=== PATIENT | male | born 1945 | race Caucasian/White ===

== ENCOUNTER 2017-12-28 14:15 | Inpatient (IN) | payer MEDICARE, OTHER ==
[~2017-12-28] VITALS: Ht 180.3 cm; Wt 64.4 kg
--- NOTE | 2017-12-28 14:20 | NUR ---
PT ARRIVED FROM [facility] VIA AMBULANCE. ALTERED AND UNCOOPERATIVE. ORIENTED TO HIS NAME.
[2017-12-28] MEDS ORDERED: RIVA10TA PO (14:41)
[2017-12-28] MEDS ORDERED: CARV25TA PO (14:41)
[2017-12-28] MEDS ORDERED: IPRA12.9 IH (14:41)
[2017-12-28] MEDS ORDERED: MAG355OR18 PO (14:41)
[2017-12-28] MEDS ORDERED: ONDA4VIA30 IV (14:41)
[2017-12-28] MEDS ORDERED: POLY17PO4 PO (14:41)
[2017-12-28] MEDS ORDERED: DIGO250T PO (14:41)
[2017-12-28] MEDS ORDERED: ASPI-605 PO (14:41)
[2017-12-28] MEDS ORDERED: ZOLP5TAB2 PO (14:41)
[2017-12-28] MEDS ORDERED: ATOR40TA PO (14:41)
[2017-12-28] MEDS ORDERED: ALBU2.5V13 IH (14:41)
[2017-12-28] MEDS ORDERED: ACET325T53 PO (14:41)
[2017-12-28] MEDS ORDERED: DILT30TA33 PO (14:41)
[2017-12-28] MEDS ORDERED: FURO-151 PO (14:41)
[2017-12-28] MEDS ORDERED: LORA-259 PO (14:41)
[2017-12-28] MEDS ORDERED: MAGN400O6 PO (14:41)
[2017-12-28] MEDS ORDERED: BLOO-140 IN (14:41)
[2017-12-28] MEDS ORDERED: LISI10TA5 PO (14:41)
[2017-12-28] MEDS ORDERED: DIVA250T4 PO (14:43)
[2017-12-28] MEDS ORDERED: QUET50TA PO (14:43)
--- NOTE | 2017-12-28 14:47 | NUR ---
SEEN AND EXAMINED BY MD. FOR PSYCHE EVALUATION AND MEDICAL CLEARANCE. PT GOT COMBATIVE AT THE FACILITY. PROVIDED SECURITY
[2017-12-28 14:57] LABS: BASOPHILS % (AUTO) 0.6 % (0.0-2.0); EOSINOPHILS % (AUTO) 0.9 % (0.0-7.0); HEMATOCRIT 35.9 % (36.7-47.1); HEMOGLOBIN 11.6 g/dL (12.5-16.3); LYMPHOCYTES # (AUTO) 0.9 K/uL (20.0-40.0); MEAN CORPUSCULAR HEMOGLOBIN 31.5 uug (23.8-33.4); MEAN CORPUSCULAR HGB CONC 32 g/dL (32.5-36.3); MEAN CORPUSCULAR VOLUME 97.3 fL (73.0-96.2); MONOCYTES # (AUTO) 0.5 K/uL (2.0-10.0); MONOCYTES % (AUTO) 10.4 % (0.0-11.0); NEUTROPHILS # (AUTO) 3.4 K/uL (1.8-8.9); NEUTROPHILS % (AUTO) 69.1 % (38.5-71.5); PLATELET COUNT (AUTO) 132 K/uL (152-348); RED BLOOD CELL COUNT(AUTO) 3.69 MIL/uL (4.06-5.63)
[2017-12-28 15:05] LABS: CARBON DIOXIDE 30 mmol/L (21-32); CHLORIDE 107 mmol/L (98-107); CREATININE 1.3 mg/dL (0.6-1.3); GLUCOSE 103 mg/dL (74-106); POTASSIUM 4.5 mmol/L (3.5-5.1); UREA NITROGEN, BLOOD 21 mg/dL (7-18)
[2017-12-28 15:13] LABS: ETHANOL 4 MG/DL (0-0)
[2017-12-28 15:17] LABS: ACETAMINOPHEN 9.7 ug/mL (10-30); ALANINE AMINOTRANSFERASE 15 U/L (16-63); ALKALINE PHOSPHATASE 52 U/L (50-136); ASPARTATE AMINOTRANSFERASE 15 U/L (15-37); BILIRUBIN,DIRECT 0.2 mg/dL (0.0-0.2); BILIRUBIN,TOTAL 0.8 mg/dL (0.2-1.0); TOTAL PROTEIN, SERUM 6.4 g/dL (6.4-8.2)
[2017-12-28] MEDS ORDERED: MIDAZOLAM HCL 2 MG/2 ML VIAL IM ONE (15:30)
[2017-12-28] MEDS ORDERED: OLANZAPINE 10 MG VIAL IM ONE ×2 (15:30→15:48)
--- NOTE | 2017-12-28 15:30 | NUR ---
PT BECAME AGITATED AND UNCONTROLLED. CONNIE MELENDEZ CALLED AND PT PLACED BACK TO BED.
--- NOTE | 2017-12-28 15:33 | NUR ---
ZYPREXA 10MG IM GIVEN TO RIIGHT BUTTOCK FOR SEVERE AGITATION.
--- NOTE | 2017-12-28 15:38 | NUR ---
ADDITIONAL MEDICATION GIVEN MIDAZOLAM 5MG IM ON THE LEFT BUTTOCK ORDERED FOR SEVERE AGITATION.
[2017-12-28] MEDS ORDERED: MIDAZOLAM HCL 5 MG/ML VIAL ONE (15:53)
[2017-12-28] MEDS ORDERED: HALOPERIDOL LACTATE 5 MG/1 ML VIAL IM ONE (16:45)
--- NOTE | 2017-12-28 16:45 | NUR ---
PT STILL VERY RESTLESS AND TRYING TO GET OUT OF BED. MEDICATED WITH HALDOL 5MG IM RIGHT BUTTOCK ORDERED.
[2017-12-28] MEDS ORDERED: HALOPERIDOL LACTATE 5 MG/1 ML VIAL ONE (16:56)
--- NOTE | 2017-12-28 19:18 | NUR ---
PT CONTINUED TO BE RESTLESS. SECURITY AT BEDSIDE FOR SAFETY. AWAITING FOR PSYCHE EVAL. REPORT GIVEN TO WENDY CRISTOBAL
--- NOTE | 2017-12-28 20:20 | NUR ---
Called report to Facundo.
[2017-12-28] MEDS ORDERED: LORAZEPAM 0.5 MG TABLET PO PRN (20:30)
[2017-12-28] MEDS ORDERED: MAGNESIUM HYDROXIDE 30 ML LIQUID UDC PO PRN (20:30)
[2017-12-28] MEDS ORDERED: MAG HYDROX/AL HYDROX/SIMETH 30 ML LIQUID UDC PO PRN (20:30)
[2017-12-28] MEDS ORDERED: LORAZEPAM 1 MG TABLET PO PRN (20:30)
[2017-12-28] MEDS ORDERED: ZOLPIDEM 5 MG TABLET PO PRN (21:15)
[2017-12-28 21:30] VITALS: BP 138/78
[2017-12-28] MEDS ORDERED: LORAZEPAM 1 MG TABLET ONE (22:17)
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
--- NOTE | 2017-12-28 22:35 | NUR ---
REMAINS RESTLESS, ATTEMPTING TO CLIMB OUT OF CHAIR. PRN ATIVAN WAS GIVEN, AT THIS TIME.
[2017-12-29] MEDS ORDERED: ONDANSETRON 4 MG/2 ML VIAL IV PRN (00:30)
[2017-12-29] MEDS ORDERED: MIRALAX 17 GM POWD.PACK PO PRN (00:30)
[2017-12-29] MEDS ORDERED: ALBUTEROL SULFATE 2.5 MG/ 0.5 ML NEBU IH PRN (00:30)
[2017-12-29] MEDS ORDERED: IPRATROPIUM BROMIDE 0.5 MG/2.5 ML NEBU NEB PRN (00:45)
[2017-12-29] MEDS: DILTIAZEM HCL 90 MG TABLET PO SCH ×3 (06:32→21:04)
[2017-12-29] MEDS ORDERED: DILTIAZEM HCL 90 MG TABLET ONE (06:45)
[2017-12-29 07:58] VITALS: BP 133/85
[2017-12-29] MEDS ORDERED: DIVALPROEX 250 MG TABLET.DR PO SCH (09:00)
[2017-12-29] MEDS: ASPIRIN EC 81 MG TABLET.DR PO SCH (09:01)
[2017-12-29] MEDS: FUROSEMIDE 40 MG TABLET PO SCH (09:03)
[2017-12-29] MEDS: LISINOPRIL 10 MG TABLET PO SCH (09:03)
[2017-12-29] MEDS: CARVEDILOL 25 MG TABLET PO SCH ×2 (09:03→21:00)
[2017-12-29] MEDS ORDERED: OLANZAPINE 10 MG VIAL IM ONE (12:15)
[2017-12-29] MEDS ORDERED: LORAZEPAM 2 MG/1 ML VIAL IM ONE (12:15)
--- NOTE | 2017-12-29 12:15 | NUR ---
Gps/Drum Plater- Patient extremely agitated, kept getting up from his chair, refusing to follow directions, nor redirectable, strong and resistive to his care. Poor safety judgement, confused ,disoriented, potential for fall. Remains with a 1:1 Nursing supervision, unable to stay still. wanders around to other patient room.Continue to monitor closely for safety. Dr Marcelino here observed patient behavior, orders received.Ativan 1 mg im zyprexa 5 mg im , adminstered to his right deltoid area, Needed 4 staff to assist in administering medications. Patient observed sitting on the floor.
[2017-12-29] MEDS: DIGOXIN 250 MCG TABLET PO SCH (12:45)
--- NOTE | 2017-12-29 15:34 | NUR ---
Gps/Switchboard Operator Supervisor- Remains sitting up on his guanako-chair, figity, restless, confused,disoriented, continue to monitor safety, wiggles out of his guanako-chair.Remains on 1:1 Nursing supervision for safety.
[2017-12-29] MEDS: LORAZEPAM 0.5 MG TABLET PO PRN (16:12)
[2017-12-29] MEDS: RIVAROXABAN 10 MG TABLET PO SCH (17:37)
[2017-12-29] MEDS: DIVALPROEX SPRINKLE 125 MG CAP.SPRINK PO SCH (17:41)
[2017-12-29 19:57] VITALS: BP 98/63
[2017-12-29] MEDS ORDERED: QUETIAPINE FUMARATE 75 MG PO SCH (21:00)
[2017-12-29] MEDS: ATORVASTATIN 40 MG TABLET PO SCH (21:03)
[2017-12-29] MEDS: QUETIAPINE FUMARATE 25 MG TABLET PO SCH (21:03)
[2017-12-30] MEDS: LORAZEPAM 0.5 MG TABLET PO PRN ×3 (03:00→21:55)
--- NOTE | 2017-12-30 05:22 | NUR ---
Pharmacy Note: gave medication with witness 1:1 sitter at 03:00 am but forgot to save it.
--- NOTE | 2017-12-30 05:38 | NUR ---
Patient slept 3.5 hours this shift. No acute distress noted. 1:1 Sitter at bedside. Patient was restless. Tries to get out of the bed or guanako chair. However, patient remains Med compliant. Safety and comfort measures maintained t/o shift. Room was kept clutter free. Bed in low and locked position. Vital signs stable. ALL BP meds help because BP ran on the low side. Discussed with Charge Nurse. All meds given as ordered. All needs met.
[2017-12-30] MEDS: DILTIAZEM HCL 90 MG TABLET PO SCH ×3 (06:00→21:45)
[2017-12-30 07:30] VITALS: BP 96/52
[2017-12-30] MEDS: FUROSEMIDE 40 MG TABLET PO SCH (09:00)
[2017-12-30] MEDS: DIVALPROEX SPRINKLE 125 MG CAP.SPRINK PO SCH ×3 (09:00→17:00)
[2017-12-30] MEDS: CARVEDILOL 25 MG TABLET PO SCH ×2 (09:00→20:33)
[2017-12-30] MEDS: DIGOXIN 250 MCG TABLET PO SCH (09:00)
[2017-12-30] MEDS: LISINOPRIL 10 MG TABLET PO SCH (09:00)
[2017-12-30] MEDS: ASPIRIN EC 81 MG TABLET.DR PO SCH (09:00)
--- NOTE | 2017-12-30 10:40 | NUR ---
Gps/Pug Mill Operator- Remains on 1:1 Nursing supervision for safety, asleep, unable to administer routine am meds.will reoffer at a later time, will recheck vital signs.
[2017-12-30] MEDS ORDERED: OLANZAPINE 10 MG VIAL IM ONE (16:15)
[2017-12-30] MEDS ORDERED: LORAZEPAM 2 MG/1 ML VIAL IM ONE (16:15)
--- NOTE | 2017-12-30 16:15 | NUR ---
Gps/Six Sigma Project Manager- Dr Morelos was called by Nurse in Charge , informed of patient combative behavior, extremely agitated, crawling on the from, wanders room to room, orders received.Ativan 1 mg IM and Zyprexa 5 mg IM was ordered and was administered to right deltoid as ordered.
[2017-12-30] MEDS: RIVAROXABAN 10 MG TABLET PO SCH (17:03)
--- NOTE | 2017-12-30 17:30 | NUR ---
Gps/Security Researcher- Renetta Weiss SPOT CHECKER in to see patient, reviewed medications, informed of the low blood pressures , latest 96/63 HR 90 , parameters were made on all b/p medications.Remains on 1:1 Nursing supervision for safety.
[2017-12-30 19:42] VITALS: BP 92/60
[2017-12-30] MEDS: ATORVASTATIN 40 MG TABLET PO SCH (20:34)
[2017-12-30] MEDS: QUETIAPINE FUMARATE 25 MG TABLET PO SCH (20:34)
[2017-12-31] MEDS: DILTIAZEM HCL 90 MG TABLET PO SCH ×3 (06:00→21:40)
[2017-12-31 06:20] VITALS: BP 108/57
[2017-12-31 07:09] LABS: CARBON DIOXIDE 32 mmol/L (21-32); CHLORIDE 108 mmol/L (98-107); CREATININE 0.8 mg/dL (0.6-1.3); GLUCOSE 86 mg/dL (74-106); UREA NITROGEN, BLOOD 17 mg/dL (7-18)
[2017-12-31 07:30] VITALS: BP 121/68
[2017-12-31] MEDS: ASPIRIN EC 81 MG TABLET.DR PO SCH (08:07)
[2017-12-31] MEDS: FUROSEMIDE 40 MG TABLET PO SCH (08:07)
[2017-12-31] MEDS: DIVALPROEX SPRINKLE 125 MG CAP.SPRINK PO SCH ×3 (08:07→16:46)
[2017-12-31] MEDS: DIGOXIN 250 MCG TABLET PO SCH (08:08)
[2017-12-31] MEDS: CARVEDILOL 25 MG TABLET PO SCH ×2 (08:08→20:34)
[2017-12-31] MEDS: LISINOPRIL 10 MG TABLET PO SCH (08:08)
[2017-12-31] MEDS ORDERED: ONDANSETRON 4 MG/2 ML VIAL IV PRN (12:00)
[2017-12-31] MEDS: LORAZEPAM 0.5 MG TABLET PO PRN ×2 (12:02→21:05)
[2017-12-31] MEDS ORDERED: ONDANSETRON ODT 4 MG TAB.RAPDIS SL PRN (12:15)
--- NOTE | 2017-12-31 13:36 | NUR ---
Firearms Report: Office Machine Servicer Apprentice completed and submitted [employer] Firearms Report on 12/31/17.
--- NOTE | 2017-12-31 15:36 | NUR ---
Initial Discharge Instructions: Pt currently lives at [facility] [[address] [place] [address]; [phone]]. Left a message for patient's Public Guardian, Reny Wallace ([phone]). Spoke with patient's daughter, Ina Esposito ([phone]) who is uncertain if plan for pt to return to [place] is appropriate for the patient. SW will speak with pt, family, Public Guardian, and MD regarding appropriate discharge plans for the pt. SW will form a safe and proper discharge plan.
--- NOTE | 2017-12-31 16:14 | NUR ---
Initial Discharge Instructions: Spoke with patient's Public Guardian, (Reny Wallace [phone]) who states she would like pt to return to [facility] when ready for discharge. SW will continue to collaborate with PG, pt, and MD regarding safe discharge plans.
[2017-12-31] MEDS: RIVAROXABAN 10 MG TABLET PO SCH (16:50)
[2017-12-31 20:25] VITALS: BP 120/72
[2017-12-31] MEDS: QUETIAPINE FUMARATE 100 MG TABLET PO SCH (20:34)
[2017-12-31] MEDS: ATORVASTATIN 40 MG TABLET PO SCH (20:34)
[2017-12-31] MEDS ORDERED: QUETIAPINE FUMARATE 25 MG TABLET PO SCH (21:00)
[2018-01-01] MEDS: DILTIAZEM HCL 90 MG TABLET PO SCH ×3 (06:00→21:50)
[2018-01-01] MEDS ORDERED: Z GUARD REMEDY PASTE 57 GM TUBE TOP PRN (07:00)
[2018-01-01 07:30] VITALS: BP 108/60
[2018-01-01] MEDS: CARVEDILOL 25 MG TABLET PO SCH ×2 (09:00→21:00)
[2018-01-01] MEDS: LISINOPRIL 10 MG TABLET PO SCH (09:00)
[2018-01-01] MEDS: DIGOXIN 250 MCG TABLET PO SCH (09:00)
[2018-01-01] MEDS: FUROSEMIDE 40 MG TABLET PO SCH (10:11)
[2018-01-01] MEDS: DIVALPROEX SPRINKLE 125 MG CAP.SPRINK PO SCH ×4 (10:12→21:22)
[2018-01-01] MEDS: Z GUARD REMEDY PASTE 57 GM TUBE TOP SCH ×2 (10:13→21:23)
[2018-01-01] MEDS: ASPIRIN EC 81 MG TABLET.DR PO SCH (10:13)
--- NOTE | 2018-01-01 10:48 | NUR ---
WOUND CARE CONSULT: PT PRESENTS WITH INCONTINENCE. RECOMMENDATIONS MADE FOR SKIN PROTECTION AND DISCUSSED WITH NURSING STAFF. CURRENT ANAYELI SCORE IS 17. PT IS AMBULATORY WITH P.T. BUT VERY UNSTEADY. WILL SEE PRTorsten IBRAHIM IN AGREEMENT WITH PLAN OF CARE.
[2018-01-01] MEDS ORDERED: OLANZAPINE 10 MG VIAL IM ONE (11:30)
[2018-01-01] MEDS ORDERED: LORAZEPAM 2 MG/1 ML VIAL IM ONE (11:30)
[2018-01-01 17:00] VITALS: BP 103/50
[2018-01-01] MEDS: RIVAROXABAN 10 MG TABLET PO SCH ×2 (17:00→19:00)
[2018-01-01 20:00] VITALS: BP 93/63
[2018-01-01] MEDS: QUETIAPINE FUMARATE 100 MG TABLET PO SCH (21:00)
[2018-01-01] MEDS: ATORVASTATIN 40 MG TABLET PO SCH (21:22)
--- NOTE | 2018-01-01 23:00 | NUR ---
received to care, up in guanako chair, appearing agitated and restless, 1;1 sitter, at side. bedtime dose of seroquel was held due to b/p of 93/63. po fluids wer egiven, but his b/p was only 102/59, at 2100. as of 2299, his b/p is now 101/59. will continue to monitor closely.
--- NOTE | 2018-01-02 00:15 | NUR ---
b/p is now 101/58. staff attempted to place him in bed, and change his diaper. diaper change was done with much resistance, taking 3 staff to assist. he immediately tried to get up, and tried to strike staff, when redirected, so he was placed back in the guanako chair.
[2018-01-02] MEDS: ACETAMINOPHEN 325 MG TABLET PO PRN ×2 (00:47→10:46)
[2018-01-02] MEDS: DILTIAZEM HCL 90 MG TABLET PO SCH ×3 (05:51→21:27)
--- NOTE | 2018-01-02 06:00 | NUR ---
slept 1.5 hours, last night. assited with am care, and shower. currently dozing off, in the guanako chair. sitter remains at side. no distress noted.
[2018-01-02 08:00] VITALS: BP 109/65
[2018-01-02] MEDS: CARVEDILOL 25 MG TABLET PO SCH ×2 (09:00→20:40)
[2018-01-02] MEDS: LISINOPRIL 10 MG TABLET PO SCH (09:00)
[2018-01-02] MEDS: DIVALPROEX SPRINKLE 125 MG CAP.SPRINK PO SCH ×4 (09:03→20:02)
[2018-01-02] MEDS: FUROSEMIDE 40 MG TABLET PO SCH (09:03)
[2018-01-02] MEDS: DIGOXIN 250 MCG TABLET PO SCH (09:04)
[2018-01-02] MEDS: ASPIRIN EC 81 MG TABLET.DR PO SCH (09:04)
[2018-01-02] MEDS: Z GUARD REMEDY PASTE 57 GM TUBE TOP SCH ×2 (09:07→20:03)
--- NOTE | 2018-01-02 09:16 | NUR ---
coreg and lisinopril held [id number]. parameters hold med if SBP< 110.
[2018-01-02] MEDS: LORAZEPAM 0.5 MG TABLET PO PRN (10:47)
--- NOTE | 2018-01-02 13:15 | NUR ---
APOORVA HELD BP 89/45. CONTINUE TO MONITOR PT.
[2018-01-02 16:00] VITALS: BP 101/59
[2018-01-02] MEDS: RIVAROXABAN 10 MG TABLET PO SCH (16:50)
--- NOTE | 2018-01-02 18:15 | NUR ---
PT IS WITH 1:1 SITTER. SITTER IS INTERACTING WITH PT AND STIMULATING HIM. PT SHOWS NO SIGNS OF RESPIRATORY DISTRESS, HAS CALM AFFECT. PT IS AOX1 AND NEEDS REDIRECTING.BED AT LOWEST LOCKED POSITION. CONTINUE TO MONITOR PT.
[2018-01-02] MEDS: ATORVASTATIN 40 MG TABLET PO SCH (20:03)
[2018-01-02 20:49] VITALS: BP 98/65
[2018-01-02 21:00] VITALS: BP 102/66
[2018-01-02] MEDS: QUETIAPINE FUMARATE 100 MG TABLET PO SCH (21:00)
--- NOTE | 2018-01-02 22:00 | NUR ---
received to care, up in guanako chair, very restless and agitated, 1:1 sitter at his side, for safety. b/p was initially 98/65, so po fluids were given. he became increasingly agitated, so he was assisted out of the guanako chair and ambulated in the hallway. diaper was also changed. he became very combative, gait was unsteady, so he was assisted back into the guanako chair, for safety. b/p was 102 66, so depakote was given, but seroquel was held. will continue to monitor closely.
[2018-01-02 23:00] VITALS: BP 98/64
--- NOTE | 2018-01-02 23:00 | NUR ---
remains up in guanako chair. is still agitated, but behavior is manageable. b/p is now 98/64. will continue to monitor closely.
[2018-01-03 02:49] VITALS: BP 112/64
[2018-01-03] MEDS: LORAZEPAM 0.5 MG TABLET PO PRN ×2 (02:49→15:23)
--- NOTE | 2018-01-03 02:49 | NUR ---
remains restless, and agitated. b/p is now 112/64, hr 74, so PRN ativan was given. sitter remains at side. will continue to monitor closely.
--- NOTE | 2018-01-03 03:30 | NUR ---
appears calmer, now.
[2018-01-03] MEDS: DILTIAZEM HCL 90 MG TABLET PO SCH ×3 (05:52→21:09)
--- NOTE | 2018-01-03 06:00 | NUR ---
slept 1 hour total. remains calm. assisted with am care, and shower. currently up in guanako chair. appears to be asleep. no distress noted. sitter remains at side. will continue to monitor closely.
[2018-01-03 07:30] VITALS: BP 106/76
[2018-01-03] MEDS: DIVALPROEX SPRINKLE 125 MG CAP.SPRINK PO SCH ×4 (08:45→21:00)
[2018-01-03] MEDS: LISINOPRIL 10 MG TABLET PO SCH (08:46)
[2018-01-03] MEDS: FUROSEMIDE 40 MG TABLET PO SCH (08:46)
[2018-01-03] MEDS: ASPIRIN EC 81 MG TABLET.DR PO SCH (08:46)
[2018-01-03] MEDS: CARVEDILOL 25 MG TABLET PO SCH ×2 (08:46→21:00)
[2018-01-03] MEDS: DIGOXIN 250 MCG TABLET PO SCH (08:46)
[2018-01-03] MEDS: Z GUARD REMEDY PASTE 57 GM TUBE TOP SCH ×2 (09:52→21:09)
[2018-01-03 13:29] VITALS: BP 80/65
--- NOTE | 2018-01-03 15:00 | NUR ---
Gps/Band Nailer-Patients' daughter called was able to talked to the patient. Speech incoherent , got anxious, climbing out of his guanako-chair, unable to redirect pt. not following directions. Fluids offered, continue with 1:1 Nursing supervision for safety. Patches of old scratches/ scabs on his forearms noted, r/t to patient episodes of agitations. Continue to provide a safe environment for pt.
[2018-01-03 18:00] VITALS: BP 113/59
[2018-01-03] MEDS: RIVAROXABAN 10 MG TABLET PO SCH (18:12)
[2018-01-03] MEDS ORDERED: QUETIAPINE FUMARATE 100 MG TABLET PO SCH (21:00)
[2018-01-03] MEDS: QUETIAPINE FUMARATE 25 MG TABLET PO SCH (21:00)
[2018-01-03 21:11] VITALS: BP 104/54
[2018-01-03] MEDS: ATORVASTATIN 40 MG TABLET PO SCH (21:45)
--- NOTE | 2018-01-03 22:00 | NUR ---
received to care, up ingeri chair, 1:1 sitter at side for safety, appearing slightly restless, but easy to redirect. b/p 97/60, hr 73, so his psychotropic and cardiac meds were held. as of 2199, he remains up in guanako chair. appears to be sleeping intermittently. he was assisted to the bathroom, then bed earlier, but he immediately climbed out of bed, so he was placed back in the guanako chair, for safety. will continue to monitor closely. no distress noted.
[2018-01-04 03:47] VITALS: BP 95/45
--- NOTE | 2018-01-04 03:48 | NUR ---
remains awake, and restless, but behavior is manageable. b/p is 95/45. hr 74.
[2018-01-04] MEDS: DILTIAZEM HCL 90 MG TABLET PO SCH ×3 (05:26→22:00)
--- NOTE | 2018-01-04 06:00 | NUR ---
slept 1 hour, total. remains calm. sitter remains at side.
[2018-01-04] MEDS: LISINOPRIL 10 MG TABLET PO SCH (08:56)
[2018-01-04] MEDS: Z GUARD REMEDY PASTE 57 GM TUBE TOP SCH ×2 (08:57→20:30)
[2018-01-04] MEDS: ASPIRIN EC 81 MG TABLET.DR PO SCH (08:58)
[2018-01-04] MEDS: DIGOXIN 250 MCG TABLET PO SCH (08:58)
[2018-01-04] MEDS: CARVEDILOL 25 MG TABLET PO SCH ×2 (08:58→20:30)
[2018-01-04] MEDS: FUROSEMIDE 40 MG TABLET PO SCH (08:59)
[2018-01-04] MEDS: DIVALPROEX SPRINKLE 125 MG CAP.SPRINK PO SCH ×5 (08:59→20:30)
[2018-01-04] MEDS: ACETAMINOPHEN 325 MG TABLET PO PRN (14:43)
[2018-01-04] MEDS: LORAZEPAM 0.5 MG TABLET PO PRN (14:44)
[2018-01-04] MEDS: RIVAROXABAN 10 MG TABLET PO SCH (17:10)
[2018-01-04 18:17] VITALS: BP 107/54
--- NOTE | 2018-01-04 18:29 | NUR ---
Gps/Chip Silo Tender- Remains on 1:1 Nursing supervision for safety. Confused, disoriented, poor safety judgement, unsteady gait, kept clumbing out of his guanako-chair, 3-4 staff to assist patient in his hygiene, incontienent of bowel and bladder, toileted w/ poor results,.Continue to monitor patient closely for safety.
[2018-01-04] MEDS: ATORVASTATIN 40 MG TABLET PO SCH (20:29)
[2018-01-04] MEDS: QUETIAPINE FUMARATE 25 MG TABLET PO SCH (20:30)
--- NOTE | 2018-01-04 20:36 | NUR ---
HELP Coreg BP meds, BP was low 111/63 HR 66. Discussed with Charge Nurse P. Will continue to monitor.
[2018-01-04] MEDS ORDERED: diphenhydrAMINE 50 MG/1 ML VIAL IM ONE (21:00)
[2018-01-04] MEDS ORDERED: HALOPERIDOL LACTATE 5 MG/1 ML VIAL IM ONE (21:00)
[2018-01-04] MEDS ORDERED: LORAZEPAM 2 MG/1 ML VIAL IM ONE (21:00)
--- NOTE | 2018-01-04 21:23 | NUR ---
Patient started to become agitated, restless and combative. Got out of the guanako chair, we guided him safely on the floor. MD made aware. New orders; Ativan 2mg, Benadryl 25 mg and Haldol 5 mg IM once. Will continue to monitor. Sitter at bedside.
[2018-01-04 21:57] VITALS: BP 111/53
--- NOTE | 2018-01-05 05:41 | NUR ---
Patient slept 6 hours. 1:1 sitter at bedside. Patient tried to get out of bed multiple times. Difficult to re-direct. No acute distress noted. Med compliant. Vital signs stable. Safety and comfort measures maintained t/o shift.
[2018-01-05] MEDS: DILTIAZEM HCL 90 MG TABLET PO SCH ×3 (06:00→22:00)
[2018-01-05 07:30] VITALS: BP 95/54
[2018-01-05] MEDS: CARVEDILOL 25 MG TABLET PO SCH ×2 (09:00→20:55)
[2018-01-05] MEDS: ASPIRIN EC 81 MG TABLET.DR PO SCH (09:00)
[2018-01-05] MEDS: LISINOPRIL 10 MG TABLET PO SCH (09:00)
[2018-01-05] MEDS: DIVALPROEX SPRINKLE 125 MG CAP.SPRINK PO SCH ×4 (09:00→20:54)
[2018-01-05] MEDS: FUROSEMIDE 40 MG TABLET PO SCH (09:00)
[2018-01-05] MEDS: DIGOXIN 250 MCG TABLET PO SCH (09:00)
--- NOTE | 2018-01-05 09:25 | NUR ---
0730 Received patient lying in bed sound asleep. Respiration even and unlabored, no s/s acute distress. With 1:1 sitter for safety. Breakfast and morning medications held until patient is fully awake.
[2018-01-05] MEDS: Z GUARD REMEDY PASTE 57 GM TUBE TOP SCH ×2 (14:07→20:55)
[2018-01-05 15:00] VITALS: BP 103/59
[2018-01-05] MEDS: RIVAROXABAN 10 MG TABLET PO SCH (16:08)
[2018-01-05 20:19] VITALS: BP 94/56
[2018-01-05] MEDS: ATORVASTATIN 40 MG TABLET PO SCH (20:54)
[2018-01-05] MEDS: QUETIAPINE FUMARATE 25 MG TABLET PO SCH (20:54)
[2018-01-06] MEDS: LORAZEPAM 0.5 MG TABLET PO PRN ×2 (02:49→13:47)
[2018-01-06] MEDS: DILTIAZEM HCL 90 MG TABLET PO SCH ×3 (06:58→22:45)
[2018-01-06 07:30] VITALS: BP 105/65
[2018-01-06] MEDS: CARVEDILOL 25 MG TABLET PO SCH ×2 (08:09→21:00)
[2018-01-06] MEDS: FUROSEMIDE 40 MG TABLET PO SCH (08:10)
[2018-01-06] MEDS: ASPIRIN EC 81 MG TABLET.DR PO SCH (08:10)
[2018-01-06] MEDS: DIGOXIN 250 MCG TABLET PO SCH (08:10)
[2018-01-06] MEDS: DIVALPROEX SPRINKLE 125 MG CAP.SPRINK PO SCH ×4 (08:10→21:16)
[2018-01-06] MEDS: Z GUARD REMEDY PASTE 57 GM TUBE TOP SCH ×2 (08:11→21:17)
[2018-01-06] MEDS: LISINOPRIL 10 MG TABLET PO SCH (08:11)
[2018-01-06] MEDS: RIVAROXABAN 10 MG TABLET PO SCH (16:29)
[2018-01-06 20:57] VITALS: BP 98/56
[2018-01-06] MEDS: QUETIAPINE FUMARATE 25 MG TABLET PO SCH (21:15)
[2018-01-06] MEDS: ATORVASTATIN 40 MG TABLET PO SCH (21:16)
[2018-01-06 22:45] VITALS: BP 82/53
[2018-01-07] VITALS: BP 106/57
--- NOTE | 2018-01-07 00:11 | NUR ---
2200 dose of Cardizem held per MD order, due to decreased B/P (82/53)@ 2245. Offered patient water, and placed him in bed with legs slightly elevated. Re-evaluated B/P @ 0000 (106/57). Patient comfortable and resting in bed with 1:1 sitter at bedside for safety. Will continue to monitor.
[2018-01-07] MEDS: DILTIAZEM HCL 90 MG TABLET PO SCH ×3 (06:00→23:14)
--- NOTE | 2018-01-07 06:22 | NUR ---
0600 dose of Cardizem held per MD order due to decreased B/P of 98/66. No distress noted. Patient resting in chair with 1:1 sitter observing for safety. Will continue to monitor
[2018-01-07 07:30] VITALS: BP 92/65
[2018-01-07] MEDS: LISINOPRIL 10 MG TABLET PO SCH (09:00)
[2018-01-07] MEDS: FUROSEMIDE 40 MG TABLET PO SCH (09:00)
[2018-01-07] MEDS: CARVEDILOL 25 MG TABLET PO SCH ×2 (09:00→20:13)
[2018-01-07] MEDS: DIVALPROEX SPRINKLE 125 MG CAP.SPRINK PO SCH ×4 (10:10→20:13)
[2018-01-07] MEDS: DIGOXIN 250 MCG TABLET PO SCH (10:11)
[2018-01-07] MEDS: Z GUARD REMEDY PASTE 57 GM TUBE TOP SCH ×2 (10:15→20:33)
[2018-01-07] MEDS: ASPIRIN EC 81 MG TABLET.DR PO SCH (10:18)
[2018-01-07] MEDS: LORAZEPAM 0.5 MG TABLET PO PRN (14:57)
[2018-01-07] MEDS: RIVAROXABAN 10 MG TABLET PO SCH (17:24)
[2018-01-07 19:52] VITALS: BP 112/60
[2018-01-07] MEDS: ATORVASTATIN 40 MG TABLET PO SCH (20:13)
[2018-01-07] MEDS: QUETIAPINE FUMARATE 25 MG TABLET PO SCH (20:13)
[2018-01-08] MEDS: LORAZEPAM 0.5 MG TABLET PO PRN (02:35)
[2018-01-08] MEDS: DILTIAZEM HCL 90 MG TABLET PO SCH ×3 (06:00→21:26)
--- NOTE | 2018-01-08 06:30 | NUR ---
0600 dose of Cardizem held per MD order due to decreased B/P of 99/65. No distress noted. Patient resting in chair with 1:1 sitter observing for safety. Will continue to monitor
[2018-01-08 07:47] VITALS: BP 99/60
[2018-01-08] MEDS: CARVEDILOL 25 MG TABLET PO SCH ×2 (09:00→20:10)
[2018-01-08] MEDS: ASPIRIN EC 81 MG TABLET.DR PO SCH (09:00)
[2018-01-08] MEDS: FUROSEMIDE 40 MG TABLET PO SCH (09:00)
[2018-01-08] MEDS: DIGOXIN 250 MCG TABLET PO SCH (09:00)
[2018-01-08] MEDS: LISINOPRIL 10 MG TABLET PO SCH (09:00)
[2018-01-08] MEDS: DIVALPROEX SPRINKLE 125 MG CAP.SPRINK PO SCH ×4 (09:31→20:11)
[2018-01-08] MEDS: Z GUARD REMEDY PASTE 57 GM TUBE TOP SCH ×2 (09:34→20:12)
[2018-01-08] MEDS: ASPIRIN 81 MG TAB.CHEW PO SCH (10:31)
[2018-01-08 16:42] VITALS: BP 103/69
[2018-01-08] MEDS: RIVAROXABAN 10 MG TABLET PO SCH (18:04)
[2018-01-08] MEDS: ATORVASTATIN 40 MG TABLET PO SCH (20:11)
[2018-01-08 20:49] VITALS: BP 100/67
[2018-01-08] MEDS ORDERED: QUETIAPINE FUMARATE 25 MG TABLET PO SCH (21:00)
--- NOTE | 2018-01-08 22:00 | NUR ---
received to care, up in the guanako chair, 1:1 sitter at side for safety, appearing slightly restless, but easy to redirect. b/p 100/60 hr 70, so his bedtime dose of seroquel was held. as of 2199, he remains up in guanako chair. he was assisted to the bathroom, earlier, and now seems calmer. no distress noted. will continue to monitor closely.
[2018-01-09] MEDS: DILTIAZEM HCL 90 MG TABLET PO SCH (06:00)
[2018-01-09] MEDS: DIVALPROEX SPRINKLE 125 MG CAP.SPRINK PO SCH ×2 (08:23→13:15)
[2018-01-09] MEDS: CARVEDILOL 25 MG TABLET PO SCH (08:23)
[2018-01-09] MEDS: FUROSEMIDE 40 MG TABLET PO SCH (08:24)
[2018-01-09] MEDS: DIGOXIN 250 MCG TABLET PO SCH (08:24)
[2018-01-09] MEDS: ASPIRIN 81 MG TAB.CHEW PO SCH (08:24)
[2018-01-09] MEDS: LISINOPRIL 10 MG TABLET PO SCH (08:25)
[2018-01-09] MEDS: Z GUARD REMEDY PASTE 57 GM TUBE TOP SCH (08:31)
--- NOTE | 2018-01-09 08:55 | NUR ---
Discharge Note: Patient will be discharged to [facility] [[address] [place] [address]; ] via ambulance. Spoke with Tim at the facility who states they are ready to accept the patient today. Spoke with patient's Public Guardian, Reny Wallace ([phone]) who is aware and agreeable with discharge plans. Spoke with pt's daughter, Ina Esposito ([phone]) who is aware of discharge plans. Patient is aware and agreeable with discharge plans. Patient will follow-up at the facility with Dr. Fischer (General Education Professor) and Dr. Marcelino (Psychiatrist).
[2018-01-09 09:07] VITALS: BP 103/53
[2018-01-09] MEDS: LORAZEPAM 0.5 MG TABLET PO PRN (10:33)
--- NOTE | 2018-01-09 13:35 | NUR ---
1200 Called [facility] spoke with Merle Gallagher RN correctional supervisor report given regarding patient will be discharged to their facility. aircrewman informed regarding patient diagnosis, medications to continue upon hospital discharged and staff verbalized understanding.1330 Discharged to [facility] via ambulance stable cdition.
[2018-01-09] MEDS ORDERED: QUETIAPINE FUMARATE 25 MG TABLET PO SCH (21:00)
== END 2018-01-09 13:30 | DRG 885 ==
LOC: ER 14:15 → GPS 21:08
PROVIDERS: ADMIT Psychiatry & Neurology Psychiatry; ATTEND Registered Nurse
DX: F29 Unspecified psychosis not due to a substance or known physiological condition (principal); I11.0 Hypertensive heart disease with heart failure; E87.0 Hyperosmolality and hypernatremia; D68.59 Other primary thrombophilia; F03.91 Unspecified dementia, unspecified severity, with behavioral disturbance; R13.10 Dysphagia, unspecified; I50.22 Chronic systolic (congestive) heart failure; I48.91 Unspecified atrial fibrillation; Z79.82 Long term (current) use of aspirin; Z79.899 Other long term (current) drug therapy; E78.5 Hyperlipidemia, unspecified; F32.9 Major depressive disorder, single episode, unspecified; J45.909 Unspecified asthma, uncomplicated; D63.8 Anemia in other chronic diseases classified elsewhere; E02 Subclinical iodine-deficiency hypothyroidism; I70.0 Atherosclerosis of aorta; Z79.01 Long term (current) use of anticoagulants
CPT/HCPCS: 36415; 71045; 80164; 84443; 85025; 85730; 92610; 93005; 97116; 97530; A4663; G0480; G0480-TC; J1200; J1630; J2060; J2250; J2358; J2405

== ENCOUNTER 2018-01-17 15:16 | Inpatient (IN) | payer MEDICARE, OTHER ==
[~2018-01-17] VITALS: Ht 180.3 cm; Wt 70.3 kg
[~2018-01-17 15:16] MED LIST: ALBU2.5V13 IH; ASPI-605 PO; ATOR40TA PO; BLOO-140 IN; CARV25TA PO; DIGO250T PO; DILT30TA33 PO; FURO-151 PO; IPRA12.9 IH; LISI10TA5 PO; MAG355OR18 PO; MAGN400O6 PO; ONDA4VIA30 IV; POLY17PO4 PO; RIVA10TA PO
[2018-01-17] MEDS ORDERED: DIVA125C PO (15:45)
[2018-01-17] MEDS ORDERED: DILT90TA2 PO (15:45)
[2018-01-17] MEDS ORDERED: ONDA4TAB5 PO (15:45)
[2018-01-17] MEDS ORDERED: LORA-259 PO (15:45)
[2018-01-17] MEDS ORDERED: RIVA20TA PO (15:45)
[2018-01-17] MEDS ORDERED: QUET50TA PO (15:45)
[2018-01-17] MEDS ORDERED: IPRA0.2S6 NEB (15:45)
[2018-01-17] MEDS ORDERED: ACET325T53 PO (15:45)
[2018-01-17 16:09] LABS: BASOPHILS % (AUTO) 0.4 % (0.0-2.0); HEMATOCRIT 37.4 % (36.7-47.1); HEMOGLOBIN 12.5 g/dL (12.5-16.3); LYMPHOCYTES # (AUTO) 1.1 K/uL (20.0-40.0); LYMPHOCYTES % (AUTO) 13.5 % (20.5-51.5); MEAN CORPUSCULAR HEMOGLOBIN 32.5 uug (23.8-33.4); MEAN CORPUSCULAR HGB CONC 33 g/dL (32.5-36.3); MEAN CORPUSCULAR VOLUME 97.4 fL (73.0-96.2); MONOCYTES # (AUTO) 0.7 K/uL (2.0-10.0); MONOCYTES % (AUTO) 8.4 % (0.0-11.0); NEUTROPHILS # (AUTO) 6.5 K/uL (1.8-8.9); NEUTROPHILS % (AUTO) 77.7 % (38.5-71.5); PLATELET COUNT (AUTO) 161 K/uL (152-348); RED BLOOD CELL COUNT(AUTO) 3.84 MIL/uL (4.06-5.63); WHITE BLOOD COUNT (AUTO) 8.4 K/uL (3.6-10.2)
[2018-01-17 16:16] LABS: CARBON DIOXIDE 33 mmol/L (21-32); CHLORIDE 113 mmol/L (98-107); CREATININE 1.7 mg/dL (0.6-1.3); GLUCOSE 86 mg/dL (74-106); UREA NITROGEN, BLOOD 65 mg/dL (7-18)
[2018-01-17 16:22] LABS: ALANINE AMINOTRANSFERASE 26 U/L (16-63); ALKALINE PHOSPHATASE 57 U/L (50-136); ASPARTATE AMINOTRANSFERASE 18 U/L (15-37); BILIRUBIN,DIRECT 0.2 mg/dL (0.0-0.2); BILIRUBIN,TOTAL 0.9 mg/dL (0.2-1.0); ETHANOL < 3 MG/DL (0-0); TOTAL PROTEIN, SERUM 7.2 g/dL (6.4-8.2)
[2018-01-17 16:23] LABS: ACETAMINOPHEN < 2.0 ug/mL (10-30)
[2018-01-17 16:32] LABS: THYROID STIMULATING HORMONE 3.142 mIU/mL (0.358-3.740)
[2018-01-17] MEDS ORDERED: IV D5W-0.45% NS 1000 ML BAG IV ONE (16:45)
[2018-01-17] MEDS ORDERED: LORAZEPAM 2 MG/1 ML VIAL ONE (16:47)
[2018-01-17] MEDS ORDERED: LORAZEPAM 2 MG/1 ML VIAL IV ONE (17:00)
[2018-01-17 19:00] VITALS: BP 111/86
[2018-01-17] MEDS ORDERED: ALBUTEROL SULFATE 2.5 MG/3 ML NEBU NEB PRN (20:15)
[2018-01-17] MEDS ORDERED: ACETAMINOPHEN 650 MG SUPP.RECT RC PRN (20:15)
[2018-01-17] MEDS ORDERED: MAGNESIUM HYDROXIDE 30 ML LIQUID UDC PO PRN (20:15)
[2018-01-17] MEDS ORDERED: ENALAPRILAT DIHYDRATE INJ 2.5 MG in IV NORMAL SALINE 50 ML IV PRN (20:15)
[2018-01-17] MEDS ORDERED: MORPHINE SULFATE 2 MG/1 ML DISP.SYRIN IV PRN (20:15)
[2018-01-17 20:49] VITALS: BP 126/71
[2018-01-17] MEDS: IV D5 1/2 NS 1000 ML 1,000 ML IV PRN (22:02)
[2018-01-17] MEDS: LORAZEPAM 2 MG/1 ML VIAL IV PRN (22:57)
[2018-01-18 00:06] VITALS: BP 102/75
[2018-01-18 05:30] VITALS: BP 116/65
[2018-01-18 06:41] LABS: BASOPHILS % (AUTO) 0.3 % (0.0-2.0); EOSINOPHILS % (AUTO) 0.3 % (0.0-7.0); HEMATOCRIT 39.2 % (36.7-47.1); HEMOGLOBIN 12.8 g/dL (12.5-16.3); LYMPHOCYTES # (AUTO) 1.1 K/uL (20.0-40.0); LYMPHOCYTES % (AUTO) 13.1 % (20.5-51.5); MEAN CORPUSCULAR HEMOGLOBIN 32.3 uug (23.8-33.4); MEAN CORPUSCULAR HGB CONC 33 g/dL (32.5-36.3); MEAN CORPUSCULAR VOLUME 98.6 fL (73.0-96.2); MONOCYTES # (AUTO) 0.7 K/uL (2.0-10.0); MONOCYTES % (AUTO) 7.9 % (0.0-11.0); NEUTROPHILS # (AUTO) 6.6 K/uL (1.8-8.9); NEUTROPHILS % (AUTO) 78.4 % (38.5-71.5); PLATELET COUNT (AUTO) 183 K/uL (152-348); RED BLOOD CELL COUNT(AUTO) 3.98 MIL/uL (4.06-5.63); WHITE BLOOD COUNT (AUTO) 8.5 K/uL (3.6-10.2)
[2018-01-18 07:32] LABS: ALANINE AMINOTRANSFERASE 27 U/L (16-63); ALKALINE PHOSPHATASE 57 U/L (50-136); ASPARTATE AMINOTRANSFERASE 25 U/L (15-37); BILIRUBIN,TOTAL 1.1 mg/dL (0.2-1.0); CARBON DIOXIDE 32 mmol/L (21-32); CHLORIDE 112 mmol/L (98-107); CREATININE 1.3 mg/dL (0.6-1.3); GLUCOSE 116 mg/dL (74-106); MAGNESIUM 2.6 mg/dL (1.8-2.4); PHOSPHOROUS 3.5 mg/dL (2.5-4.9); POTASSIUM 3.9 mmol/L (3.5-5.1); TOTAL PROTEIN, SERUM 7.4 g/dL (6.4-8.2); UREA NITROGEN, BLOOD 50 mg/dL (7-18)
[2018-01-18] MEDS: FAMOTIDINE. 20 MG/2 ML VIAL IV SCH ×2 (08:55→08:57)
[2018-01-18] MEDS: LORAZEPAM 2 MG/1 ML VIAL IV PRN ×2 (09:34→17:28)
[2018-01-18] MEDS: MORPHINE SULFATE 4 MG/1 ML DISP.SYRIN IV PRN ×2 (10:37→20:55)
[2018-01-18] MEDS: IV D5 1/2 NS 1000 ML 1,000 ML IV PRN (12:00)
[2018-01-18 20:03] VITALS: BP 112/56
[2018-01-18 21:45] LABS: *BILIRUBIN,URIN NEGATIVE (NEGATIVE); *BLOOD, URINE NEGATIVE (NEGATIVE); *CLARITY,URINE CLEAR (CLEAR); *COLOR,URINE YELLOW (YELLOW); *KETONES,URINE NEGATIVE (NEGATIVE); *PROTEIN,URINE NEGATIVE (NEGATIVE); LEUKOCYTE ESTERASE ,URINE NEGATIVE (NEGATIVE); NITRITE, URINE NEGATIVE (NEGATIVE); UGLUCOSE NEGATIVE (NEGATIVE)
[2018-01-18 21:57] LABS: *AMPHETAMINE, URINE NEGATIVE (NEGATIVE); *BARBITURATE, URINE NEGATIVE (NEGATIVE); *CANNABINOID, URINE NEGATIVE (NEGATIVE); *COCCAINE, URINE NEGATIVE (NEGATIVE); *OPIATE, URINE POSITIVE (NEGATIVE); *PHENCYCLIDINE SCREEN,URINE NEGATIVE (NEGATIVE)
[2018-01-18 22:00] LABS: MUCUS,URINE FEW /LPF (0-FEW); SQUAMOUS EPITHELIAL CELL,UR FEW /HPF (NONE SEEN); WBC,URINE NONE SEEN /HPF (0-3)
[2018-01-19 04:00] VITALS: BP 118/61
[2018-01-19] MEDS: IV D5 1/2 NS 1000 ML 1,000 ML IV PRN ×2 (05:31→22:35)
[2018-01-19 07:53] LABS: BASOPHILS % (AUTO) 0.6 % (0.0-2.0); EOSINOPHILS # (AUTO) 0.1 K/uL (0.0-0.7); EOSINOPHILS % (AUTO) 2.1 % (0.0-7.0); HEMATOCRIT 36.6 % (36.7-47.1); LYMPHOCYTES # (AUTO) 1.5 K/uL (20.0-40.0); LYMPHOCYTES % (AUTO) 21.8 % (20.5-51.5); MEAN CORPUSCULAR HEMOGLOBIN 32.3 uug (23.8-33.4); MEAN CORPUSCULAR HGB CONC 33 g/dL (32.5-36.3); MEAN CORPUSCULAR VOLUME 98.9 fL (73.0-96.2); MONOCYTES # (AUTO) 0.6 K/uL (2.0-10.0); NEUTROPHILS # (AUTO) 4.5 K/uL (1.8-8.9); NEUTROPHILS % (AUTO) 66.5 % (38.5-71.5); PLATELET COUNT (AUTO) 141 K/uL (152-348); WHITE BLOOD COUNT (AUTO) 6.7 K/uL (3.6-10.2)
[2018-01-19 08:00] VITALS: BP 106/66
[2018-01-19 08:00] LABS: CARBON DIOXIDE 32 mmol/L (21-32); CHLORIDE 114 mmol/L (98-107); CREATININE 1.1 mg/dL (0.6-1.3); GLUCOSE 98 mg/dL (74-106); MAGNESIUM 2.5 mg/dL (1.8-2.4); PHOSPHOROUS 2.7 mg/dL (2.5-4.9); UREA NITROGEN, BLOOD 36 mg/dL (7-18)
[2018-01-19] MEDS: FAMOTIDINE. 20 MG/2 ML VIAL IV SCH (08:22)
[2018-01-19] MEDS: LORAZEPAM 2 MG/1 ML VIAL IV PRN ×3 (08:43→22:28)
[2018-01-19 12:00] VITALS: BP 108/64
[2018-01-19 18:42] VITALS: BP 118/62
[2018-01-19 19:29] VITALS: BP 100/64
[2018-01-20] MEDS: LORAZEPAM 2 MG/1 ML VIAL IV PRN ×2 (05:03→15:31)
[2018-01-20 06:42] LABS: BASOPHILS % (AUTO) 0.5 % (0.0-2.0); EOSINOPHILS # (AUTO) 0.3 K/uL (0.0-0.7); LYMPHOCYTES # (AUTO) 1.2 K/uL (20.0-40.0); MEAN CORPUSCULAR HEMOGLOBIN 32.5 uug (23.8-33.4); MEAN CORPUSCULAR HGB CONC 33 g/dL (32.5-36.3); MEAN CORPUSCULAR VOLUME 98.4 fL (73.0-96.2); MONOCYTES # (AUTO) 0.6 K/uL (2.0-10.0); MONOCYTES % (AUTO) 8.7 % (0.0-11.0); NEUTROPHILS # (AUTO) 4.5 K/uL (1.8-8.9); NEUTROPHILS % (AUTO) 68.8 % (38.5-71.5); PLATELET COUNT (AUTO) 122 K/uL (152-348); RED BLOOD CELL COUNT(AUTO) 3.34 MIL/uL (4.06-5.63); WHITE BLOOD COUNT (AUTO) 6.5 K/uL (3.6-10.2)
[2018-01-20 06:59] LABS: HEMOGLOBIN 10.9 g/dL (12.5-16.3)
[2018-01-20 07:00] LABS: HEMATOCRIT 32.8 % (36.7-47.1)
[2018-01-20 07:40] LABS: ALANINE AMINOTRANSFERASE 20 U/L (16-63); ALKALINE PHOSPHATASE 48 U/L (50-136); ASPARTATE AMINOTRANSFERASE 20 U/L (15-37); CARBON DIOXIDE 31 mmol/L (21-32); CHLORIDE 112 mmol/L (98-107); CREATININE 0.9 mg/dL (0.6-1.3); GLUCOSE 97 mg/dL (74-106); MAGNESIUM 2.2 mg/dL (1.8-2.4); PHOSPHOROUS 2.6 mg/dL (2.5-4.9); POTASSIUM 3.8 mmol/L (3.5-5.1); TOTAL PROTEIN, SERUM 5.8 g/dL (6.4-8.2); UREA NITROGEN, BLOOD 25 mg/dL (7-18)
[2018-01-20 08:00] VITALS: BP 131/54
[2018-01-20] MEDS: FAMOTIDINE. 20 MG/2 ML VIAL IV SCH (08:39)
[2018-01-20] MEDS ORDERED: Z GUARD REMEDY PASTE 57 GM TUBE TOP PRN (09:45)
[2018-01-20 12:00] VITALS: BP 105/56
[2018-01-20] MEDS: IV D5 1/2 NS 1000 ML 1,000 ML IV PRN (12:57)
[2018-01-20] MEDS ORDERED: ALBU2.5V7 NEB (15:03)
[2018-01-20] MEDS ORDERED: CARV3.12 PO (15:03)
[2018-01-20] MEDS ORDERED: DIGO125T5 PO (15:03)
[2018-01-20] MEDS: MORPHINE SULFATE 4 MG/1 ML DISP.SYRIN IV PRN (16:04)
[2018-01-21] MEDS ORDERED: FAMOTIDINE 20 MG TABLET PO SCH (09:00)
== END 2018-01-20 19:00 | DRG 682 ==
LOC: ER 15:21 → TELE 18:47 → MED 01-18 13:50
PROVIDERS: ADMIT Internal Medicine; ATTEND Internal Medicine
DX: N17.9 Acute kidney failure, unspecified (principal); G93.41 Metabolic encephalopathy; L89.150 Pressure ulcer of sacral region, unstageable; E87.0 Hyperosmolality and hypernatremia; F03.91 Unspecified dementia, unspecified severity, with behavioral disturbance; D69.6 Thrombocytopenia, unspecified; I48.0 Paroxysmal atrial fibrillation; R13.10 Dysphagia, unspecified; D53.9 Nutritional anemia, unspecified; E86.0 Dehydration; I11.9 Hypertensive heart disease without heart failure; E78.5 Hyperlipidemia, unspecified; Z79.01 Long term (current) use of anticoagulants; I70.0 Atherosclerosis of aorta; M19.90 Unspecified osteoarthritis, unspecified site; Z74.09 Other reduced mobility; E55.9 Vitamin D deficiency, unspecified; F32.9 Major depressive disorder, single episode, unspecified; Z79.899 Other long term (current) drug therapy; Z79.82 Long term (current) use of aspirin; F29 Unspecified psychosis not due to a substance or known physiological condition
CPT/HCPCS: 36415; 70030-TC; 71045; 80307; 82306; 83735; 84100; 84443; 85025; 87086; 92610; 93005; A4663; C1758; G0480; G0480-TC; J2060; J2270; J3490

== ENCOUNTER 2018-01-20 21:14 | Inpatient (IN) | payer MEDICARE, OTHER ==
[~2018-01-20] VITALS: Ht 180.3 cm; Wt 65.8 kg
--- NOTE | 2018-01-20 21:00 | NUR ---
ADMITTED 72YEARS OLD MALE TO [facility] ON A 5150 HOLD FOR DTO AND GD. PATIENT WAS ADMITTED FORM [facility]. PT LIVES AT [facility] ([facility] HE WAS ADMITTED TO [facility] ON 01/17/18 WITH DX HYPONATREMIA. WHILE IN THE UNIT, PATIENT BECOME ANXIOUS, RESTLESS, AGITATIVE, ATTEMPTED TO BITE IS IV TUBING. WHILE AT [facility], PATIENT TWISTED THE ARM OF AN ACTIVITY STAFF AND COMBATIVE. NO REGARDS FOR THE SAFETY OF OTHERS. HOLD STARTED ON 01/20/18 AT 1030 AND WILL END ON 01/23/18 AT 1030. PATIENT WAS PLACED ON 1:1 SUPERVISION FOR SAFETY. PT NOTED A/O X 0, CONFUSED, DISORGANIZED, IMPAIRED JUDGMENT, POOR INSIGHT. HE WAS UNABLE TO SIGN ADMISSION PAPERS. SKIN ASSESSMENT: PATIENT PRESENTED WITH AND ABRASION ON HIS KNUCKLE INDEX FINGER OF RIGHT HAND. HE ALSO PRESENTED WITH MULTIPLE SMALL SCABS ON BOTH LEGS, ARMS AND HANDS. MILD REDNESS NOTED IN BUTTOCKS. IT WAS ALSO NOTED A SUNKEN CHEST. PT V/S ARE STABLE AT TIME OF ADMISSION. PT IS UNDER THE CARE OF DR. JAIMES AND DR MCMANUS. WILL CONTINUE TO MONITOR CLOSELY.
[~2018-01-20 21:14] MED LIST changes: +ACET325T53 PO; +ALBU2.5V7 NEB; -BLOO-140 IN; +CARV3.12 PO; +DIGO125T5 PO; -DILT30TA33 PO; +DILT90TA2 PO; +DIVA125C PO; +IPRA0.2S6 NEB; -IPRA12.9 IH; +LORA-259 PO; -MAG355OR18 PO; +ONDA4TAB5 PO; -ONDA4VIA30 IV; -POLY17PO4 PO; +QUET50TA PO; -RIVA10TA PO; +RIVA20TA PO
[2018-01-20] MEDS ORDERED: ACETAMINOPHEN 325 MG TABLET PO PRN (21:45)
[2018-01-20] MEDS ORDERED: ZOLPIDEM 5 MG TABLET PO PRN (21:45)
[2018-01-20] MEDS ORDERED: MAG HYDROX/AL HYDROX/SIMETH 30 ML LIQUID UDC PO PRN (21:45)
[2018-01-20 21:52] VITALS: BP 141/70
[2018-01-20] MEDS ORDERED: IPRATROPIUM BROMIDE 0.5 MG/2.5 ML NEBU NEB PRN (23:45)
[2018-01-20] MEDS ORDERED: ALBUTEROL SULFATE 2.5 MG/3 ML NEBU NEB PRN (23:45)
[2018-01-21 00:31] VITALS: BP 141/70
--- NOTE | 2018-01-21 01:01 | NUR ---
PATIENT NOTED RESTLESS, ANXIOUS, UNABLE TO FALL ASLEEP. AMBIEN 5MG PO PRN FOR INSOMNIA WAS GIVEN. WILL CONTINUE TO MONITOR CLOSELY.
[2018-01-21] MEDS: LORAZEPAM 0.5 MG TABLET PO PRN ×3 (06:26→19:25)
[2018-01-21 07:30] VITALS: BP 127/64
[2018-01-21] MEDS: ASPIRIN EC 81 MG TABLET.DR PO SCH (10:14)
[2018-01-21] MEDS: DIGOXIN 125 MCG TABLET PO SCH (10:16)
[2018-01-21] MEDS: CARVEDILOL 3.125 MG TABLET PO SCH ×2 (10:17→20:08)
[2018-01-21] MEDS: Z GUARD REMEDY PASTE 57 GM TUBE TOP SCH ×2 (10:17→20:10)
[2018-01-21] MEDS: HALOPERIDOL 0.5 MG TABLET PO SCH ×4 (10:55→20:09)
--- NOTE | 2018-01-21 10:56 | NUR ---
Privacy Director Assessment: I have reviewed this patient's psychosocial assessment dated 12/31/17, and I can attest to the accuracy of the information therein. There have been no changes since his last assessment. Patient is alert and oriented x1 (person only). Patient presented in a confused, disorganized, and disoriented mood. Pt has history of dementia and is a poor historian. Patient presented with mumbling speech and appeared to be responding to internal stimuli. Due to pt's current mental status, he was unable to answer if he has had any suicidal or homicidal ideations at this time. Patient's judgment and insight are poor. Manager Market Research will continue to follow up. Per chart, patient came from [facility] [[address] [place] [address]; ]. SW will confirm with facility if pt will be able to return there upon discharge. SW will continue to collaborate with pt, Public Guardian (Reny Wallace [phone]), and MD regarding appropriate discharge disposition for this patient. SW will form a safe and proper discharge plan.
[2018-01-21 15:50] VITALS: BP 114/60
[2018-01-21] MEDS: RIVAROXABAN 10 MG TABLET PO SCH (16:33)
[2018-01-21] MEDS: MAGNESIUM HYDROXIDE 30 ML LIQUID UDC PO PRN (18:07)
[2018-01-21] MEDS: ATORVASTATIN 40 MG TABLET PO SCH (20:09)
[2018-01-21] MEDS: MIRTAZAPINE 15 MG TABLET PO SCH (20:10)
--- NOTE | 2018-01-21 22:00 | NUR ---
received to care, up in guanako chair, 1;1 sitter at side, at all times, for safety. remains restless. attempting to climb out of the chair, difficult to redirect. PRN ativan was given at 1924, and by 2099, appeared much calmer. he was assisted to bed at 2129, and, as of 2199, he appears to be asleep. no distress noted. will continue to monitor closely.
--- NOTE | 2018-01-22 06:30 | NUR ---
slept 7.25 hours. continues to sleep. mostly cooperative with nursing care, but combative, at times. sitter remains at bedside. no distress noted.
[2018-01-22 07:30] VITALS: BP_SYST 105; BP_SYST 151; BP_DIAS 55; BP_DIAS 58
[2018-01-22] MEDS: CARVEDILOL 3.125 MG TABLET PO SCH ×2 (09:00→20:28)
[2018-01-22] MEDS: LORAZEPAM 0.5 MG TABLET PO PRN ×3 (09:10→22:56)
[2018-01-22] MEDS: ASPIRIN EC 81 MG TABLET.DR PO SCH (09:10)
[2018-01-22] MEDS: HALOPERIDOL 0.5 MG TABLET PO SCH ×4 (09:10→20:29)
[2018-01-22] MEDS: DIGOXIN 125 MCG TABLET PO SCH (09:10)
[2018-01-22] MEDS: Z GUARD REMEDY PASTE 57 GM TUBE TOP SCH ×2 (09:11→20:29)
[2018-01-22 13:00] VITALS: BP 143/57
--- NOTE | 2018-01-22 14:05 | NUR ---
GPS: Nursing Notes: Severe Agitation: Patient is restless, poor impulse control, pushing staff away, resistant with nursing care, responding to internal stimuli by grabbing the air and kneeling on the floor, unable to be redirected, internally preoccupied, redirected, but unable to follow directions, episodes of climbing on top of the guanako chair, restless behavior, Dr. Chari buckner, continue with 1:1 sitter for safety, continue with treatment plan.
[2018-01-22] MEDS ORDERED: OLANZAPINE 10 MG VIAL IM STA (14:07)
[2018-01-22] MEDS: MAGNESIUM HYDROXIDE 30 ML LIQUID UDC PO PRN (14:27)
--- NOTE | 2018-01-22 14:27 | NUR ---
GPS: Nursing Notes: Chemical restraint: Patient continue with restless behavior, poor insight, impaired judgment, pushing staff away, resistant with nursing care, episodes of swinging his arms, unable to be redirected, internally preoccupied, Dr. Marcelino called and ordered: Zyprexa 5mg IM STAT for severe agitated behavior, medication IM given at this time, V/S: 143/57, 59, 20, 0/10, continue with treatment plan.
--- NOTE | 2018-01-22 14:57 | NUR ---
GPS: Nursing Notes: Reassessment of Chemical Restraint: Patient is awake and internally preoccupied, continue to grab the air, touching the floor, but not pushing staff when assisting him, calm behavior, continue to monitor for safety, continue with 1:1 sitter, continue with treatment plan.
[2018-01-22] MEDS: RIVAROXABAN 10 MG TABLET PO SCH (17:21)
[2018-01-22 20:23] VITALS: BP 98/55
[2018-01-22] MEDS: ATORVASTATIN 40 MG TABLET PO SCH (20:28)
[2018-01-22] MEDS: MIRTAZAPINE 15 MG TABLET PO SCH (20:29)
--- NOTE | 2018-01-22 22:00 | NUR ---
received to care, up in guanako chair, 1;1 sitter at side, at all times, for safety. remains restless. attempting to climb out of the chair. needs frequent redirection. as of 2199, he remains awake, and restless. 1;1 sitter remains at patients side, at all times, for safety. slightly agitated when care is rendered. will continue to monitor closely.
[2018-01-22 22:40] VITALS: BP 99/65
--- NOTE | 2018-01-22 22:56 | NUR ---
remains agitated, and restless, up in guanako chair. sitter remains at side. attempting to climb out of chair, difficult to redirect. PRN ativan was given, at this time.
[2018-01-23 07:30] VITALS: BP_SYST 106; BP_SYST 84; BP_DIAS 57; BP_DIAS 58
--- NOTE | 2018-01-23 07:30 | NUR ---
received to care, up in guanako chair, 1;1 sitter at side, at all times, for safety. remains restless. he remains awake, and restless. 1;1 sitter remains at patients side, at all times, for safety. slightly agitated when care is rendered. will continue to monitor closely.
[2018-01-23] MEDS: Z GUARD REMEDY PASTE 57 GM TUBE TOP SCH ×2 (08:19→21:09)
[2018-01-23] MEDS: ASPIRIN EC 81 MG TABLET.DR PO SCH (08:19)
[2018-01-23] MEDS: CARVEDILOL 3.125 MG TABLET PO SCH ×2 (08:19→21:00)
[2018-01-23] MEDS: HALOPERIDOL 0.5 MG TABLET PO SCH ×4 (08:19→21:26)
[2018-01-23] MEDS: DIGOXIN 125 MCG TABLET PO SCH (08:19)
[2018-01-23] MEDS: DOCUSATE SODIUM 100 MG/10 ML LIQUID UDC PO SCH ×2 (11:34→21:00)
[2018-01-23 13:00] VITALS: BP 94/61
[2018-01-23] MEDS: LORAZEPAM 0.5 MG TABLET PO PRN ×2 (14:18→22:48)
--- NOTE | 2018-01-23 14:19 | NUR ---
PT IS GETTING COMBATIVE ATIVAN 1MG PO GIVEN PER MD ORDERS.
[2018-01-23] MEDS ORDERED: OLANZAPINE 10 MG VIAL IM ONE (15:45)
[2018-01-23 15:58] LABS: *BILIRUBIN,URIN NEGATIVE (NEGATIVE); *BLOOD, URINE Trace-intact (NEGATIVE); *COLOR,URINE YELLOW (YELLOW); *KETONES,URINE NEGATIVE (NEGATIVE); *PROTEIN,URINE NEGATIVE (NEGATIVE); LEUKOCYTE ESTERASE ,URINE NEGATIVE (NEGATIVE); NITRITE, URINE NEGATIVE (NEGATIVE); UGLUCOSE NEGATIVE (NEGATIVE)
--- NOTE | 2018-01-23 15:59 | NUR ---
Patient continue with restless behavior, poor insight, impaired judgment, pushing staff away, resistant with nursing care, episodes of swinging his arms, unable to be redirected, internally preoccupied, Dr. Marcelino called and ordered: Zyprexa 5mg IM STAT for severe agitated behavior, medication IM given at this time,
[2018-01-23] MEDS: RIVAROXABAN 10 MG TABLET PO SCH (16:02)
[2018-01-23 16:11] LABS: *CREATININE,URINE 130.7 mg/dL (30-125); *URINE TOTAL PROTEIN RANDOM 14.8 mg/dL (<150/24HR)
--- NOTE | 2018-01-23 16:46 | NUR ---
Patient is awake and internally preoccupied, continue to grab the air, touching the floor, but not pushing staff when assisting him, calm behavior, continue to monitor for safety, continue with 1:1 sitter, continue with treatment plan.
[2018-01-23 16:58] LABS: *CLARITY,URINE HAZY (CLEAR)
[2018-01-23 16:59] LABS: BACTERIA,URINE MANY /HPF (NONE SEEN); SQUAMOUS EPITHELIAL CELL,UR FEW /HPF (NONE SEEN)
[2018-01-23 17:00] LABS: MUCUS,URINE MANY /LPF (0-FEW)
[2018-01-23] MEDS: ATORVASTATIN 40 MG TABLET PO SCH (21:26)
[2018-01-23] MEDS: MIRTAZAPINE 15 MG TABLET PO SCH (21:26)
[2018-01-23 21:33] VITALS: BP 102/62
--- NOTE | 2018-01-23 22:00 | NUR ---
received to care, up in guanako chair, appearing very restless, attempting to climb out of chair, difficult to redirect. sitter at his side, at all times, for safety. b/p was initially 84/57, so his meds were held. after pushing fluids and being placed in Trendelenburg position in bed, his b/p went up to 100/60. his routine psychotropic meds were given, but he was trying to climb out of bed, so he was placed back in the guanako chair, for safety. as of 2199, he remains awake, and restless, attempting to get out of chair. needs frequent redirection. will continue to monitor closely.
[2018-01-23 22:48] VITALS: BP 97/60
--- NOTE | 2018-01-23 22:48 | NUR ---
remains restless. PRN ativan was given, a this time. will continue to monitor closely.
--- NOTE | 2018-01-23 23:30 | NUR ---
appears calmer, now. remains up in guanako chair. remains up in guanako chair. sitter remains at side. will continue to monitor closely.
[2018-01-24 07:30] VITALS: BP 92/61
[2018-01-24] MEDS: ASPIRIN EC 81 MG TABLET.DR PO SCH (09:35)
[2018-01-24] MEDS: CARVEDILOL 3.125 MG TABLET PO SCH ×2 (09:36→21:00)
[2018-01-24] MEDS: DIGOXIN 125 MCG TABLET PO SCH (09:36)
[2018-01-24] MEDS: HALOPERIDOL 0.5 MG TABLET PO SCH ×2 (09:36→12:29)
[2018-01-24] MEDS: DOCUSATE SODIUM 100 MG/10 ML LIQUID UDC PO SCH ×2 (09:37→21:11)
[2018-01-24] MEDS: Z GUARD REMEDY PASTE 57 GM TUBE TOP SCH ×2 (09:37→21:14)
[2018-01-24] MEDS ORDERED: HALOPERIDOL 0.5 MG TABLET PO SCH (17:00)
[2018-01-24] MEDS: HALOPERIDOL 1 MG TABLET PO SCH ×2 (17:37→21:11)
[2018-01-24] MEDS: RIVAROXABAN 10 MG TABLET PO SCH (17:51)
--- NOTE | 2018-01-24 18:00 | NUR ---
Gps/Inspector Raw Quartz- Called [facility], to check if patient ever had eye check up for eye glasses this year, per daughter who leaves in [place] , requesting the need of eyeglasses r/t poor vision. Per Nurse at [facility] ,pt. had eye check up December 12, needed to talk to Transmitter Engineer In Charge tomorrow on how to assist patient obtaining prescription eye glasses that will assist patient with his vision.
--- NOTE | 2018-01-24 19:30 | NUR ---
Received patient from day shift nurse. Shift report given at bedside. Patient currently sitting in chair with 1:1 sitter at bedside. No acute distress noted. Pertinent assessment completed. Patient attempting to get up from chair. BP slightly low at start of shift at 99/58. Will continue to monitor BP. checked room for safety at start of shift. Bed placed in low position. Will continue to monitor patient through shift.
[2018-01-24 20:20] VITALS: BP 99/58
[2018-01-24] MEDS: MIRTAZAPINE 15 MG TABLET PO SCH (21:12)
[2018-01-24] MEDS: ATORVASTATIN 40 MG TABLET PO SCH (21:12)
--- NOTE | 2018-01-25 07:01 | NUR ---
GPS/NSG PATIENT AGITATED, 1:1 FOR SAFETY. ATTEMPTS TO ADMINISTER PRN FOR AGITATION, UNABLE TO ADMINISTER DUE TO PATIENTS BLOOD PRESSURE DECREASED.
[2018-01-25 07:30] VITALS: BP 90/52
--- NOTE | 2018-01-25 08:00 | NUR ---
Patient noted sitting in dining room awaiting breakfast tray, no behaviors noted at this time, no complaints of pain, no signs of distress, refused nicotine patch stating,"I'll smoke when I leave". Patient took all other AM medications. All needs met at this time, will continue to monitor Addendum: 01/25/18 at 0907 by STAR HE RN WRONG CHARTING FOR THIS PATIENT
[2018-01-25] MEDS: DOCUSATE SODIUM 100 MG/10 ML LIQUID UDC PO SCH ×2 (08:25→20:37)
[2018-01-25] MEDS: ASPIRIN EC 81 MG TABLET.DR PO SCH (08:27)
[2018-01-25] MEDS: HALOPERIDOL 1 MG TABLET PO SCH ×4 (08:28→20:37)
[2018-01-25] MEDS: CARVEDILOL 3.125 MG TABLET PO SCH ×2 (08:30→21:00)
[2018-01-25] MEDS: DIGOXIN 125 MCG TABLET PO SCH (08:31)
--- NOTE | 2018-01-25 09:08 | NUR ---
PATIENT NOTED SITTING IN ACTIVITIES ROOM EATING BREAKFAST WITH ASSIST, TOOK ALL AM MEDICATIONS, NO FACIAL CUES OF PAIN (NON VERBAL), NO SIGNS OF DISTRESS, NO BEHAVIORS NOTED, 1:1 SITTER NOTED, WILL CONTINUE PLAN OF CARE
[2018-01-25] MEDS: Z GUARD REMEDY PASTE 57 GM TUBE TOP SCH ×2 (09:23→20:38)
[2018-01-25 15:00] VITALS: BP 92/57
[2018-01-25] MEDS: RIVAROXABAN 10 MG TABLET PO SCH (16:28)
--- NOTE | 2018-01-25 18:18 | NUR ---
Gps/Supervisor Dental Laboratory- Remains on 1:1 Nursing supervision for safety, pt. gets restless, sliding from his guanako-chair. Ambulated with 2 staff assisting, patient tend to push staff during ambulating, gait unsteady , safety continue to emphasized.Gets figity and restless.
--- NOTE | 2018-01-25 18:23 | NUR ---
Gps/Staffing Rn- Remains on 1:1 Nursing supervision for safety, gait unsteady, needed 2 staff to walk patient tends to push staff during ambulations. Tends to slides from his guanako-chair. Constant redirections, safety continue to emphasized.
--- NOTE | 2018-01-25 19:30 | NUR ---
Received patient from day shift nurse. Report given at bedside. Patient currently in bed lying down comfortably with no signs of acute distress noted. 1:1 sitter at bedside. Pertinent assessment completed. Patient noted to be confused & unable to make needs known. On a 14 day hold till 02/05. Room checked for environment safety at start of shift. Bed in low position x3 side rails up. Will continue to monitor through shift.
[2018-01-25] MEDS: MIRTAZAPINE 15 MG TABLET PO SCH (20:38)
[2018-01-25] MEDS: ATORVASTATIN 40 MG TABLET PO SCH (20:38)
[2018-01-25] MEDS: CLONAZEPAM 0.5 MG TABLET PO SCH (20:38)
--- NOTE | 2018-01-25 21:19 | NUR ---
Held BP med. BP at 119/67 & HR of 79. Due to decreased BP & multiple psychotropic meds given. Will continue to monitor through shift.
[2018-01-25 21:31] VITALS: BP 119/67
[2018-01-25] MEDS: LORAZEPAM 0.5 MG TABLET PO PRN (23:47)
--- NOTE | 2018-01-25 23:55 | NUR ---
PATIENT WAS NOTED RESTLESS, AGITATIVE. MULTIPLE REDIRECTIONS GIVEN, YET INEFFECTIVE. ATIVAN 1MG PO PRN WAS GIVEN. WILL CONTINUE TO MONITOR CLOSELY.
--- NOTE | 2018-01-26 01:00 | NUR ---
PATIENT NOTED RESTING COMFORTABLE IN BED. ATIVAN PO PRN EFFECTIVE. WILL CONTINUE TO MONITOR.
--- NOTE | 2018-01-26 05:40 | NUR ---
Patient was noted with a small amount of blood inside his mouth, upon assessment, a loose tooth was noted in his upper right front gum. pt received mouth care. will endorse to incoming shift. will continue to monitor.
--- NOTE | 2018-01-26 05:45 | NUR ---
Patient was noted with a small amount of blood inside his mouth, upon assessment, a loose tooth was noted in his upper l
--- NOTE | 2018-01-26 06:10 | NUR ---
Patient given shower this AM. Compliant during shower. 2 person assist. Slept total of 7 hours through the night. No acute distress noted. 1:1 sitter at bedside. All needs attended to. patient kept clean & dry. Diaper change per soiling. All meds administered as ordered per MD. Safety measures implemented. Will endorse to day shift nurse.
[2018-01-26 08:28] VITALS: BP 126/63
[2018-01-26] MEDS: DOCUSATE SODIUM 100 MG/10 ML LIQUID UDC PO SCH ×2 (09:00→20:56)
[2018-01-26] MEDS: DIGOXIN 125 MCG TABLET PO SCH (09:00)
[2018-01-26] MEDS: CARVEDILOL 3.125 MG TABLET PO SCH ×2 (09:00→20:57)
[2018-01-26] MEDS: HALOPERIDOL 1 MG TABLET PO SCH ×4 (10:12→20:56)
[2018-01-26] MEDS: NITROFURANTOIN/NITROFURAN MAC 100 MG CAPSULE PO SCH ×2 (10:12→20:56)
[2018-01-26] MEDS: ASPIRIN EC 81 MG TABLET.DR PO SCH (10:12)
[2018-01-26] MEDS: Z GUARD REMEDY PASTE 57 GM TUBE TOP SCH ×2 (10:15→21:07)
[2018-01-26 15:00] VITALS: BP 106/57
[2018-01-26] MEDS: RIVAROXABAN 10 MG TABLET PO SCH (17:19)
[2018-01-26] MEDS: LORAZEPAM 0.5 MG TABLET PO PRN (18:08)
[2018-01-26 19:41] VITALS: BP 106/57
[2018-01-26] MEDS: MIRTAZAPINE 15 MG TABLET PO SCH (20:56)
[2018-01-26] MEDS: CLONAZEPAM 0.5 MG TABLET PO SCH (20:56)
[2018-01-26] MEDS: ATORVASTATIN 40 MG TABLET PO SCH (20:56)
--- NOTE | 2018-01-27 06:22 | NUR ---
GPS/NSG Patient continues on a 1:1 for safety. Patient is compliant with medication however requires max interventions. Continues to be unpredictable with periods when he strikes out at staff attempting to provide care. Patient slept a total of six hours, no signs of distress noted. Continue to monitor for safety.
--- NOTE | 2018-01-27 06:25 | NUR ---
Patient is confused unable to have a coherent conversation, unable to formulate plan for self care.
[2018-01-27 08:00] VITALS: BP 102/60
[2018-01-27] MEDS: DOCUSATE SODIUM 100 MG/10 ML LIQUID UDC PO SCH ×2 (08:21→20:26)
[2018-01-27] MEDS: NITROFURANTOIN/NITROFURAN MAC 100 MG CAPSULE PO SCH ×2 (08:21→20:24)
[2018-01-27] MEDS: ASPIRIN EC 81 MG TABLET.DR PO SCH (08:21)
[2018-01-27] MEDS: DIGOXIN 125 MCG TABLET PO SCH (08:22)
[2018-01-27] MEDS: CARVEDILOL 3.125 MG TABLET PO SCH ×2 (08:22→20:38)
[2018-01-27] MEDS: HALOPERIDOL 1 MG TABLET PO SCH ×4 (08:34→20:24)
[2018-01-27] MEDS: BOOST PLUS 237 ML LIQUID (RICH CHOCOLATE) PO SCH ×2 (08:37→17:24)
[2018-01-27] MEDS: Z GUARD REMEDY PASTE 57 GM TUBE TOP SCH ×2 (08:38→20:41)
--- NOTE | 2018-01-27 09:33 | NUR ---
Gps/Supervising Nurse- Remains with a 1:1 Nursing supervision for safety, ambulates around with assist, unsteady gait.Needed verbal cues most of the time , safety emphasized, unable to formulate plan for safe, assist with meals, fluids offered , adequate intake.
[2018-01-27] MEDS: LORAZEPAM 0.5 MG TABLET PO PRN ×2 (14:46→21:56)
--- NOTE | 2018-01-27 14:50 | NUR ---
Pt observed to be getting agitated. Ativan PRN administered per MD orders. Will assess for effectiveness and continue to closely monitor.
[2018-01-27 16:19] VITALS: BP 101/53
[2018-01-27] MEDS: RIVAROXABAN 10 MG TABLET PO SCH (16:41)
[2018-01-27 20:00] VITALS: BP 97/58
[2018-01-27] MEDS: CLONAZEPAM 0.5 MG TABLET PO SCH (20:24)
[2018-01-27] MEDS: ATORVASTATIN 40 MG TABLET PO SCH (20:25)
[2018-01-27] MEDS: MIRTAZAPINE 15 MG TABLET PO SCH (20:25)
[2018-01-28 07:30] VITALS: BP 147/75
[2018-01-28] MEDS: LORAZEPAM 0.5 MG TABLET PO PRN ×2 (08:01→23:24)
[2018-01-28] MEDS ORDERED: HALOPERIDOL 1 MG TABLET PO SCH (09:00)
[2018-01-28] MEDS: DOCUSATE SODIUM 100 MG/10 ML LIQUID UDC PO SCH ×2 (09:14→20:02)
[2018-01-28] MEDS: CARVEDILOL 3.125 MG TABLET PO SCH ×2 (09:14→21:20)
[2018-01-28] MEDS: NITROFURANTOIN/NITROFURAN MAC 100 MG CAPSULE PO SCH ×2 (09:14→20:02)
[2018-01-28] MEDS: ASPIRIN EC 81 MG TABLET.DR PO SCH (09:15)
[2018-01-28] MEDS: DIGOXIN 125 MCG TABLET PO SCH (09:15)
[2018-01-28] MEDS: HALOPERIDOL 5 MG TABLET PO SCH ×3 (09:16→17:05)
[2018-01-28] MEDS: Z GUARD REMEDY PASTE 57 GM TUBE TOP SCH ×2 (09:17→20:08)
[2018-01-28] MEDS: BOOST PLUS 237 ML LIQUID (RICH CHOCOLATE) PO SCH ×2 (09:18→17:06)
[2018-01-28 15:04] VITALS: BP 112/61
--- NOTE | 2018-01-28 16:05 | NUR ---
Discharge Planning Note: At 1115, this service writer attempted to contact pt's Public Guardian, Reny Wallace ([phone]) to inform her of discharge date and to obtain verbal consent for new SNF placement for the patient. Left message. At 1600, this service writer called Duty Worker of the Public Guardian's office ([phone]). Spoke with Hemal, who stated he would contact another Public Guardian to assist in discharge planning. Awaiting return call from Public Guardian's Office. Superintendent Sales will follow-up.
[2018-01-28] MEDS: RIVAROXABAN 10 MG TABLET PO SCH (17:05)
[2018-01-28 20:00] VITALS: BP 109/79
[2018-01-28] MEDS: ATORVASTATIN 40 MG TABLET PO SCH (20:02)
[2018-01-28] MEDS: MIRTAZAPINE 15 MG TABLET PO SCH (20:02)
[2018-01-28] MEDS ORDERED: CLONAZEPAM 1 MG TABLET PO SCH (21:00)
[2018-01-28] MEDS ORDERED: CLONAZEPAM 0.5 MG TABLET PO SCH (21:00)
[2018-01-28] MEDS ORDERED: HALOPERIDOL 5 MG TABLET PO SCH (21:00)
--- NOTE | 2018-01-28 21:34 | NUR ---
PATIENT RECEIVED UP IN CALDERON CHAIR AWAKE, REMAINS WITH A 1:1 SITTER FOR SAFETY. PATIENT CALM, HOWEVER PERIODS OF AGITATION NOTED. PATIENT COMPLAINT WITH MEDICATION. CONTINUE WITH CURRENT TREATMENT PLAN. NO AGGRESSIVE OR COMBATIVE BEHAVIOR NOTED WILL CONTINUE TO MONITOR AND REDIRECT.
--- NOTE | 2018-01-29 07:07 | NUR ---
PATIENT IN BED SLEEPING, REMAINS WITH A 1:1 SITTER FOR SAFETY. PATIENT BECAME INCREASINGLY AGITATED DURING PATIENT CARE, PUNCHING, KICKING, AGGRESSIVE TOWARDS STAFF. PATIENT WAS NOT ABLE TO BE REDIRECTED, REQUIRED SEVERAL STAFF MEMBERS TO HELP. PATIENT PLACED IN CALDERON CHAIR SECURED.
[2018-01-29 07:30] VITALS: BP 95/57
[2018-01-29] MEDS: NITROFURANTOIN/NITROFURAN MAC 100 MG CAPSULE PO SCH (08:40)
[2018-01-29] MEDS: DOCUSATE SODIUM 100 MG/10 ML LIQUID UDC PO SCH (08:40)
[2018-01-29] MEDS: HALOPERIDOL 5 MG TABLET PO SCH ×2 (08:40→13:44)
[2018-01-29] MEDS: ASPIRIN EC 81 MG TABLET.DR PO SCH (08:40)
[2018-01-29 08:41] VITALS: BP 95/57
[2018-01-29] MEDS: DIGOXIN 125 MCG TABLET PO SCH (08:41)
[2018-01-29] MEDS: Z GUARD REMEDY PASTE 57 GM TUBE TOP SCH (08:41)
[2018-01-29] MEDS: CARVEDILOL 3.125 MG TABLET PO SCH (08:41)
[2018-01-29] MEDS: BOOST PLUS 237 ML LIQUID (RICH CHOCOLATE) PO SCH (08:48)
[2018-01-29] MEDS: LORAZEPAM 0.5 MG TABLET PO PRN (09:52)
--- NOTE | 2018-01-29 09:56 | NUR ---
Discharge Note: Patient will be discharged to [facility] [[address] [place], [place] [id number]; [phone]] via ambulance. Spoke to patient's Public Guardian, Reny Wallace ([phone]) who provided consent for placement and is agreeable with discharge plan. SW left message for pt's daughter, Ina ([phone]) to inform of discharge plan. Patient is aware and agreeable with discharge plan. Patient will follow-up at the facility with Dr. Talbert (Business Services Representative) and Dr. Mckinley (Psychiatrist).
--- NOTE | 2018-01-29 15:30 | NUR ---
GPS: Nursing Notes: Discharge Notes: Patient is awake and responding to his name by moving his head toward the sound, selective mute, legally blind, compliant with his medications, cooperative with nursing care, denies any SI/Hi, denies any AH/VH, denies any pain or discomfort, denies any SOB at this time, assisted with ADL's, discharge to [facility] at [address] [place], [place] [id number] , report given to Ana PETERSON by Leesa CRISTOBAL, transported to facility via ambulance. research worker kitchen spoke to patient's Public Guardian, Reny Wallace ([phone]) who provided consent for placement and is agreeable with discharge plan. SW left message for pt's daughter, Ina ([phone]) to inform of discharge plan. Patient is aware and agreeable with discharge plan. Patient will follow-up at the facility with Dr. Talbert (Stud Dairy Cattle Farmer) and Dr. Mckinley (Psychiatrist) for aftercare at the facility.
== END 2018-01-29 15:30 | DRG 885 ==
LOC: GPS 21:15
PROVIDERS: ADMIT Psychiatry & Neurology Psychiatry; ATTEND Internal Medicine
DX: F23 Brief psychotic disorder (principal); B95.2 Enterococcus as the cause of diseases classified elsewhere; G93.40 Encephalopathy, unspecified; L89.159 Pressure ulcer of sacral region, unspecified stage; E87.0 Hyperosmolality and hypernatremia; F03.91 Unspecified dementia, unspecified severity, with behavioral disturbance; I48.0 Paroxysmal atrial fibrillation; R13.10 Dysphagia, unspecified; N39.0 Urinary tract infection, site not specified; I70.0 Atherosclerosis of aorta; Z79.01 Long term (current) use of anticoagulants; E55.9 Vitamin D deficiency, unspecified; Z74.09 Other reduced mobility; M19.90 Unspecified osteoarthritis, unspecified site; E78.5 Hyperlipidemia, unspecified; I10 Essential (primary) hypertension; F41.9 Anxiety disorder, unspecified; M62.81 Muscle weakness (generalized); Z79.899 Other long term (current) drug therapy; K59.00 Constipation, unspecified; Z86.59 Personal history of other mental and behavioral disorders
CPT/HCPCS: 84156; 84300; 87077; 87086; 97116; 97530; A4663; J2358